=== PATIENT | male | born 1995 | race Caucasian/White ===

== ENCOUNTER 2023-05-24 20:10 | Inpatient (IN) | payer BC, SELFPAY ==
--- NOTE | ~2023-05-24 | US_ITS ---
EXAMINATION: US venous doppler UE DATE: 05/25/2023 10:42 INDICATION: Left arm swelling TECHNIQUE: Grayscale ultrasound images without and with compression and Doppler ultrasound images of the left upper extremity veins were obtained. COMPARISON: None. FINDINGS: The left internal jugular vein, subclavian vein, axillary vein, brachial veins, basilic vein, cephali c vein, radial vein, and ulnar vein are patent. IMPRESSION: 1. No evidence of deep venous thrombosis. Reviewed, dictated and finalized at location L.
--- NOTE | ~2023-05-24 | US_ITS ---
EXAMINATION: US abdomen limited DATE: 05/25/2023 10:41 INDICATION: Elevated CPK TECHNIQUE: Multiple grayscale and Doppler ultrasound images of the abdomen were obtained. COMPARISON: None available FINDINGS: The head and body of the pancreas are normal. The pancreatic tail is obscured by bowel gas. The liver is normal with normal echogenicity and echotexture. No surface nodularity. Normal hepatope jose de jesus flow in the main portal vein. The gallbladder is normal with no abnormal wall thickening, pericho lecystic fluid or stones. The normal common bile duct measures 2 mm. There was no sonographic Cruz sign. IMPRESSION: 1. No sonographic correlate for the patient's symptoms. Reviewed, dictated and finalized at location L.
[2023-05-24 20:26] VITALS: BP 137/85; PULSE 91; RESP 14; TEMP 36.8; O2SAT 99
[2023-05-24 21:46] LABS: Appearance Urine Clear (Clear); Bilirubin Urine Negative (Negative); Blood Urine Negative (Negative); Color Urine Yellow (Yellow); Glucose Urine UA Negative (Negative); Ketones Urine Negative (Negative); Leukocyte Esterase Ur Negative LEU/UL (Negative); Nitrate Urine Negative (Negative); Protein Urine Negative (Negative); Specific Grav Ur 1.006 (1.001-1.035); Urobilinogen Urine 0.2 mg/dL (<2.0)
[2023-05-24 21:47] LABS: Add Urine Microscopic? NO
[2023-05-24 22:20] LABS: Basophils Percent Auto 0.4 % (0.2-1.2); Eosinophils Absolute Auto 0.4 K/mm3 (0-0.3); Eosinophils Percent Auto 5.6 % (0-4.4); Hematocrit 46.2 % (42.0-52.0); Hemoglobin 15.9 g/dL (14.0-18.0); Immature Granulocyte Absolute 0.02 K/mm3 (0.00-0.031); Immature Granulocyte Percent A 0.3 % (0-0.5); Lymphocytes Absolute Auto 1.82 K/mm3 (0.9-3.2); Lymphocytes Percent Auto 23.8 % (18.3-44.2); Mean Corpuscular HGB Conc 34.4 g/dl (32-36); Mean Corpuscular Hemoglobin 30.2 pg (26-34); Mean Corpuscular Volume 87.7 fl (80-100); Mean Platelet Volume 9.5 fl (7.4-10.4); Monocytes Absolute Auto 0.6 K/mm3 (0.1-0.6); Monocytes Percent Auto 7.4 % (2.6-8.5); Neutrophils Absolute Auto 4.8 K/mm3 (1.3-6.7); Neutrophils Percent Auto 62.5 % (45.5-73.1); Platelet Count Result 228 k/mm3 (150-375); Red Blood Count 5.27 M/mm3 (4.6-6.20); Red Cell Distribution Width 13.3 % (11.5-14.5); White Blood Count 7.7 K/mm3 (4.5-10.0)
[2023-05-24 22:30] LABS: Prothrombin Time 13.9 Seconds (11.1-14.7)
[2023-05-24 22:32] VITALS: BP 128/72; PULSE 85; RESP 12; TEMP 37.2; O2SAT 100
[2023-05-24 22:37] LABS: Alanine Aminotransferase 195 U/L (6-50); Albumin Level 4.4 g/dL (3.5-5.1); Alkaline Phosphatase 47 U/L (38-126); Anion Gap 5 mmol/L (8-16); Aspartate Amino Transferase 497 U/L (17-59); Bilirubin,Total 1.3 mg/dL (0.2-1.3); Blood Urea Nitrogen 9 mg/dL (9-20); Carbon Dioxide 30 mmol/L (22-30); Chloride 103 mmol/L (98-107); Estimated CRCL calculation 140 ml/min; Estimated Glomerular Filt Rate > 60; Glucose 81 mg/dL (65-110); Potassium 3.9 mmol/L (3.4-5.0); Sodium 138 mmol/L (137-145)
[2023-05-24 23:04] LABS: Creatine Kinase 12922 U/L (55-170)
--- NOTE | 2023-05-24 23:22 | ED.GENADULT ---
HPI - General Adult General Chief complaint: Extremity Problem,Nontraumatic Stated complaint: left arm swelling Time Seen by Provider: 05/24/23 22:34 History of Present Illness HPI narrative: 28-year-old male presented emerged department for evaluation of left arm swelling. Patient states that he does workout regularly but did recently do a very intense arm work-up. Patient states he had some bilateral arm soreness but no focal left arm pain. Patient noticed he had increased swelling of the left arm. Patient states he still has intact sensation and denies any pain. Patient has no swelling of the hand. Patient has no prior history of PE or DVT. Related Data Home Medications Medication Instructions Recorded Confirmed multivitamin 1 tablet PO DAILY 05/01/23 Allergies Allergy/AdvReac Type Severity Reaction Status Date / Time pollen extracts Allergy Unknown Rash Verified 05/01/23 08:11 No Known Allergies Allergy Verified 05/01/23 08:11 Review of Systems Review of Systems: All systems reviewed & are unremarkable except as noted in HPI and below PMFSH Past Medical History Medical History ADHD Allergies External hemorrhoid Hemorrhoids Family History Family History Father Asthma Depression ADHD Mother Depression Hypertension Grandparent Malignant neoplasm of prostate Other Family history of malignant neoplasm Social History Social History Smoking status: Never smoker Alcohol intake: current Drinks per week: 1 Alcohol use details: rarely Substance use: current Substance use type: marijuana Lack of Transportation: No Lack of Food: Never True Current Housing: I Have Housing Concerned About Future Housing: No Difficulty Paying Gas/Electric Bills: No Difficulty Paying for Meds: No Currently Unemployed: No Education: Associate Degree Difficulty w/ Childcare or Family Care: No Living arrangements: alone Occupation/Education: occupation 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 HEAD: normocephalic, atraumatic. EYES: PERRLA/EOMI, conjunctivae clear. NOSE: Normal no drainage NECK: Supple. No adenopathy, no masses. RESPIRATORY: Airway patent, respirations nonlabored. Clear to auscultation bilaterally, no rales, rhonchi, wheezing. CARDIOVASCULAR: Regular rate and rhythm without murmurs rubs or gallops. ABDOMINAL: Soft, nontender, nondistended, normal bowel sounds MUSCULOSKELETAL: Moves all extremities. Left upper arm and left forearm fullness, no firmness of the compartments, no tenderness to palpation, no erythema, intact pulses. NEURO: Alert. Cranial nerves II through XII intact. Grossly intact SKIN: Warm, dry. Normal Color. No evidence of cellulitis Course Course Emergency Course: 28-year-old male presented ED for evaluation of left arm fullness. Patient is afebrile with no leukocytosis. Patient has a stable hemoglobin at 15.9. Patient has normal kidney function and creatinine clearance. Patient does have mildly elevated liver enzymes. Patient does have a significantly elevated CPK. Story and labs are concerning for rhabdomyolysis. 2 L of labs were ordered. Case was discussed with the hospitalist but he was accepted for admission. Patient was up and the results of his labs and on the plan for admission. All questions concerns were addressed. Vital Signs Vital signs: Vital Signs Temperature 98.3 F 05/24/23 20:26 Pulse Rate 91 05/24/23 20:26 Respiratory Rate 14 05/24/23 20:26 Blood Pressure 137/85 05/24/23 20:26 Pulse Oximetry 99 05/24
--- NOTE | 2023-05-24 23:31 | PM.IMHP ---
H&P: HPI History of Present Illness Date/Time: 05/24/23 23:31 Chief Complaint: Left upper extremity swelling Narrative: This is a 28 male with past medical history significant for ADHD, allergies patient presents to the emergency room after he noted left upper extremity increases arm circumference, no pain, no tenderness, no warmth, no decreased range of motion, no pain with movement, no numbness, no tingling, patient has been working out at the gym. Preliminary workup was significant for elevated CPK. Patient is been admitted for further evaluation management and treatment. EXAMINATION: US venous doppler UE DATE: 05/25/2023 10:42 INDICATION: Left arm swelling TECHNIQUE: Grayscale ultrasound images without and with compression and Doppler ultrasound images of the left upper extremity veins were obtained. COMPARISON: None. FINDINGS: The left internal jugular vein, subclavian vein, axillary vein, brachial veins, basilic vein, cephalic vein, radial vein, and ulnar vein are patent. IMPRESSION: 1. No evidence of deep venous thrombosis. Review of Systems Review of Systems: Left upper extremity swelling Constitutional: Constitutional: Denies chills, Denies fatigue, Denies fever(s), Denies malaise, Denies night sweats and Denies weakness Eyes: Eyes: Denies change in vision ENT: Denies dysphagia and Denies odynophagia Cardiovascular: Cardiovascular: Denies chest pain, Denies radiating jaw, neck or arm pain and Denies palpitations Respiratory: Respiratory: Denies chest congestion, Denies cough and Denies excessive phlegm production Gastrointestinal: Gastrointestinal: Denies abdominal pain, Denies dyspepsia, Denies heartburn, Denies diarrhea, Denies nausea and Denies vomiting Genitourinary: Genitourinary: Denies dysuria Musculoskeletal: Musculoskeletal: Denies myalgias, Denies arthralgias, Denies joint swelling, Denies limited range of motion and Denies muscle weakness Comments: LUE swelling Integumentary/Breasts: Skin/Breast: Denies rash Neurologic: Denies vertigo, Denies dizziness, Denies focal weakness and Denies Sensory deficit (Neuro) Psychiatric: Psychiatric: Reports no additional psychiatric complaints and Reports as per HPI Endocrine: Endocrine: Denies cold intolerance, Denies flushing, Denies heat intolerance, Denies polyphagia, Denies polydipsia and Denies palpitations Hematologic/Lymphatic: Hematologic/Lymphatic: Reports no additional hematologic/lymphatic complaints and Reports as per HPI Allergic/Immunologic: Allergic/Immunologic: Reports no additional allergic/immunologic complaints, Reports as per HPI, Denies urticaria, Denies itchy eyes, Denies lip swelling and Denies wheezing PMFSH Past Medical History Medical History ADHD Allergies External hemorrhoid Hemorrhoids Family History Family History Father Asthma Depression ADHD Mother Depression Hypertension Grandparent Malignant neoplasm of prostate Other Family history of malignant neoplasm Social History Social History Smoking status: Never smoker Alcohol intake: current Drinks per week: 1 Alcohol use details: rarely Substance use: current Substance use type: marijuana Lack of Transportation: No Lack of Food: Never True Current Housing: I Have Housing Concerned About Future Housing: No Difficulty Paying Gas/Electric Bills: No Difficulty Paying for Meds: No Currently Unemployed: No Education: Associate Degree Difficulty w/ Childcare or Family Care: No Living arrangements: alone Occupation/Education: occupation 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
[2023-05-24] MEDS: SODIUM CHLORIDE 0.9% IV 1,000 ML 999 ML IV CONT ×2 (23:32→23:33)
[2023-05-25] VITALS (7 sets, daily range): BP systolic 109–161; BP diastolic 46–94; PULSE 55–92; RESP 14–20; TEMP 36.5–36.8; O2SAT 98–100
--- NOTE | 2023-05-25 00:56 | PC.NURSE ---
pt arrived on floor to room 328 at 00:50. oriented to room and call light use.
[2023-05-25] MEDS: SODIUM CHLORIDE 0.9% IV 1,000 ML 200 ML IV CONT ×3 (00:58→18:30)
[2023-05-25 03:35] LABS: Creatine Kinase 9218 U/L (55-170)
[2023-05-25 07:00] LABS: Hematocrit 46.2 % (42.0-52.0); Hemoglobin 15.5 g/dL (14.0-18.0); Mean Corpuscular HGB Conc 33.5 g/dl (32-36); Mean Corpuscular Volume 89.4 fl (80-100); Mean Platelet Volume 10.1 fl (7.4-10.4); Platelet Count Result 230 k/mm3 (150-375); Red Blood Count 5.17 M/mm3 (4.6-6.20); Red Cell Distribution Width 13.2 % (11.5-14.5); White Blood Count 7.2 K/mm3 (4.5-10.0)
[2023-05-25 07:09] LABS: Anion Gap 5 mmol/L (8-16); Blood Urea Nitrogen 7 mg/dL (9-20); Calcium 8.6 mg/dL (8.4-10.2); Carbon Dioxide 28 mmol/L (22-30); Chloride 107 mmol/L (98-107); Estimated CRCL calculation 140 ml/min; Estimated Glomerular Filt Rate > 60; Glucose 90 mg/dL (65-110); Magnesium 2.1 mg/dL (1.6-2.3); Phosphorus 3.3 mg/dL (2.5-4.5); Potassium 3.9 mmol/L (3.4-5.0); Sodium 140 mmol/L (137-145)
[2023-05-25 07:13] LABS: Creatine Kinase 7372 U/L (55-170)
[2023-05-25] MEDS: ENOXAPARIN 40 MG/0.4 ML SYRINGE SUB-Q (09:31)
--- NOTE | 2023-05-25 15:13 | PM.IMPN ---
Progress Note: A&P Assessment and Plan (1) Rhabdomyolysis: Qualifiers: Rhabdomyolysis type: non-traumatic Qualified Code(s): M62.82 - Rhabdomyolysis Code(s): M62.82 - Rhabdomyolysis Status: Acute Assessment and Plan: Patient works out frequently and lifts weights. He developed LUE swelling and came to the ED. -CK down trending 12,922-->9218-->7372 -Continue IV fluids at 200 ml per hour (2) Elevated liver enzymes: Code(s): R74.8 - Abnormal levels of other serum enzymes Status: Acute Assessment and Plan: Transaminitis related to rhabdomyolysis -AST 497, ALT 195 Subjective Date/time seen: 05/25/23 15:13 Interval history: This is a 28 male with past medical history significant for ADHD, allergies patient presents to the emergency room after he noted left upper extremity increases arm circumference, no pain, no tenderness, no warmth, no decreased range of motion, no pain with movement, no numbness, no tingling, patient has been working out at the gym.? Preliminary workup was significant for elevated CPK.? Patient is been admitted for further evaluation management and treatment. Interval history: 05/25: Say was seen this afternoon and appears well. He says he has no complaints other than some swelling to his left arm. He feels like the swelling has moved up to his mid-bicep but he was also asleep laying on it. Otherwise he feels completely fine. ROS in negative. No abdominal pain, N/V. He is urinating without difficulty and tolerating a regular diet. I reviewed his ultrasound results from this morning. RUQ US negative for liver pathology and the LUE US negative for DVT. Will continue aggressive hydration and will repeat labs in the morning. Hopefully if his CK is nearly recovered and his liver enzymes are improved then he can d/c home with instructions to drink lots of fluids and follow up with PCP. Review of Systems Review of Systems: All systems reviewed & are unremarkable except as noted in HPI and below Exam Narrative: General: well appearing, well developed, appears stated age. Neuro: Alert and orientated x 4. PERRLA. Cranial nerves 2-12 intact without focal deficit. HEENT: normocephalic, atraumatic. Mucous membranes moist. Neck supple without JVD or lymphadenopathy. Respiratory: clear to auscultation bilaterally. No rales/rhonic/wheezes. Cardiovascular: Regular rate and rhythm, normal S1-S2 upon auscultation. No murmurs, rubs, or clicks. PMI is nondisplaced. Abdomen: Soft, flat, non-distended and non-tender. Bowel sounds present to all four quadrants. Extremities: No cyanosis, clubbing. LUE non-pitting edema to mid-bicep and mid-forearm. Pulses are palpable 2/2. Active ROM to all four extremities. Skin: Warm, dry, and intact, without rash, erythema, or lesion. Psych: pleasant, cooperative, normal speech, normal affect. Objective Data Vital Signs Vital Signs: Vital Signs - 24 hr 05/24/23 20:26 05/24/23 22:32 05/25/23 00:09 Temperature 98.3 F 98.9 F Pulse Rate 91 85 84 Respiratory Rate 14 12 20 Blood Pressure 137/85 128/72 128/74 Pulse Oximetry 99 100 100 Oxygen Delivery Room Air 05/25/23 01:53 05/25/23 06:00 05/25/23 08:32 Temperature 97.7 F Pulse Rate 55 L Respiratory Rate 14 Blood Pressure 109/46 L Pulse Oximetry 98 98 Oxygen Delivery Room Air Room Air 05/25/23 13:41 Temperature 98.2 F Pulse Rate 92 Respiratory Rate 17 Blood Pressure 133/83 Pulse Oximetry 100 Oxygen Delivery Intake/Output Intake/Output: Intake & Output 05/22/23 05/23/23 05/24/23 05/25/23 23:59 23:59 23:59 23:59 Intake Total 3360 Balance 3360 Meds/Results Medications: Active Medications Generic Name Dose Route Start Last Admin Trade Name Freq PRN Reason Stop Dose Admin Al Hydrox/Mg Hydrox/Simethicone 30 ml 05/25/23 03:19 Mag Hydrox/Al Hydrox/Simeth 30 Ml Udc PO Q6H PRN Indigestion Enoxaparin Sodium 40 mg
[2023-05-26] MEDS: SODIUM CHLORIDE 0.9% IV 1,000 ML 200 ML IV CONT ×4 (03:45→19:03)
[2023-05-26 06:00] VITALS: BP 142/83; PULSE 65; RESP 16; TEMP 35.8; O2SAT 99
[2023-05-26 06:06] LABS: Basophils Percent Auto 0.7 % (0.2-1.2); Eosinophils Absolute Auto 0.7 K/mm3 (0-0.3); Eosinophils Percent Auto 12.5 % (0-4.4); Hematocrit 42.7 % (42.0-52.0); Hemoglobin 14.3 g/dL (14.0-18.0); Immature Granulocyte Absolute 0.02 K/mm3 (0.00-0.031); Immature Granulocyte Percent A 0.4 % (0-0.5); Lymphocytes Absolute Auto 1.52 K/mm3 (0.9-3.2); Lymphocytes Percent Auto 27.2 % (18.3-44.2); Mean Corpuscular HGB Conc 33.5 g/dl (32-36); Mean Corpuscular Hemoglobin 29.9 pg (26-34); Mean Corpuscular Volume 89.3 fl (80-100); Mean Platelet Volume 9.7 fl (7.4-10.4); Monocytes Absolute Auto 0.4 K/mm3 (0.1-0.6); Monocytes Percent Auto 6.6 % (2.6-8.5); Neutrophils Absolute Auto 2.9 K/mm3 (1.3-6.7); Neutrophils Percent Auto 52.6 % (45.5-73.1); Platelet Count Result 199 k/mm3 (150-375); Red Blood Count 4.78 M/mm3 (4.6-6.20); Red Cell Distribution Width 13.2 % (11.5-14.5); White Blood Count 5.6 K/mm3 (4.5-10.0)
[2023-05-26 06:29] LABS: Alanine Aminotransferase 126 U/L (6-50); Albumin Level 3.6 g/dL (3.5-5.1); Alkaline Phosphatase 40 U/L (38-126); Anion Gap 5 mmol/L (8-16); Aspartate Amino Transferase 222 U/L (17-59); Blood Urea Nitrogen 6 mg/dL (9-20); Calcium 8.3 mg/dL (8.4-10.2); Carbon Dioxide 26 mmol/L (22-30); Chloride 108 mmol/L (98-107); Estimated CRCL calculation 159 ml/min; Estimated Glomerular Filt Rate > 60; Glucose 99 mg/dL (65-110); Potassium 3.9 mmol/L (3.4-5.0); Sodium 139 mmol/L (137-145)
[2023-05-26 08:45] LABS: Creatine Kinase 4431 U/L (55-170)
[2023-05-26 13:59] VITALS: BP 142/91; PULSE 78; RESP 18; TEMP 36.7; O2SAT 98
--- NOTE | 2023-05-26 17:58 | PM.IMPN ---
Progress Note: A&P Assessment and Plan (1) Rhabdomyolysis: Qualifiers: Rhabdomyolysis type: non-traumatic Qualified Code(s): M62.82 - Rhabdomyolysis Code(s): M62.82 - Rhabdomyolysis Status: Acute Assessment and Plan: Patient works out frequently and lifts weights. He developed LUE swelling and came to the ED. -CK down trending 12,922-->9218-->7372-->4431 -Continue IV fluids at 200 ml per hour (2) Elevated liver enzymes: Code(s): R74.8 - Abnormal levels of other serum enzymes Status: Acute Assessment and Plan: Transaminitis related to rhabdomyolysis -AST 497, ALT 195 -Continue to downtrend. AST 222 and ALT 126 today Subjective Date/time seen: 05/26/23 17:58 Interval history: This is a 28 male with past medical history significant for ADHD, allergies patient presents to the emergency room after he noted left upper extremity increases arm circumference, no pain, no tenderness, no warmth, no decreased range of motion, no pain with movement, no numbness, no tingling, patient has been working out at the gym.? Preliminary workup was significant for elevated CPK.? Patient is been admitted for further evaluation management and treatment. Interval history: 05/25: Say was seen this afternoon and appears well. He says he has no complaints other than some swelling to his left arm. He feels like the swelling has moved up to his mid-bicep but he was also asleep laying on it. Otherwise he feels completely fine. ROS in negative. No abdominal pain, N/V. He is urinating without difficulty and tolerating a regular diet. I reviewed his ultrasound results from this morning. RUQ US negative for liver pathology and the LUE US negative for DVT. Will continue aggressive hydration and will repeat labs in the morning. Hopefully if his CK is nearly recovered and his liver enzymes are improved then he can d/c home with instructions to drink lots of fluids and follow up with PCP. 05/26: Say continues to do well. No complaints, no issues overnight. He is ready to go home anytime we are just waiting for his CK to decrease. Labs trending in the expected direction. He did note that his BP was a little high but I'm blaming it on IV fluids and he also mentions that he was just finishing walking when his vitals were taken. Swelling to his left arm is improved from yesterday. Review of Systems Review of Systems: All systems reviewed & are unremarkable except as noted in HPI and below Exam Narrative: General: well appearing, well developed, appears stated age. Neuro: Alert and orientated x 4. PERRLA. Cranial nerves 2-12 intact without focal deficit. HEENT: normocephalic, atraumatic. Mucous membranes moist. Neck supple without JVD or lymphadenopathy. Respiratory: clear to auscultation bilaterally. No rales/rhonic/wheezes. Cardiovascular: Regular rate and rhythm, normal S1-S2 upon auscultation. No murmurs, rubs, or clicks. PMI is nondisplaced. Abdomen: Soft, flat, non-distended and non-tender. Bowel sounds present to all four quadrants. Extremities: No cyanosis, clubbing. LUE non-pitting edema to mid-bicep and mid-forearm. Pulses are palpable 2/2. Active ROM to all four extremities. Skin: Warm, dry, and intact, without rash, erythema, or lesion. Psych: pleasant, cooperative, normal speech, normal affect. Objective Data Vital Signs Vital Signs: Vital Signs - 24 hr 05/25/23 20:55 05/25/23 20:00 05/25/23 21:26 Temperature 97.7 F Pulse Rate 84 92 Respiratory Rate 16 17 Blood Pressure 161/94 H 154/84 H Pulse Oximetry 99 100 Oxygen Delivery Room Air 05/26/23 06:00 05/26/23 13:59 Temperature 96.4 F L 98.1 F Pulse Rate 65 78 Respiratory Rate 16 18 Blood Pressure 142/83 H 142/91 H Pulse Oximetry 99 98 Oxygen Delivery Intake/Output Intake/Output: Intake & Output 05/23/23 05/24/23 05/25/23 05/26/23 23:59 23:59 23:59 23:59 Intake Total 6150 2990 Balance 6150 2990 Meds/R
[2023-05-26 19:58] VITALS: PULSE 78; RESP 18; O2SAT 98
[2023-05-26 22:00] VITALS: BP 153/86; PULSE 73; RESP 16; TEMP 37.1; O2SAT 99
[2023-05-27] MEDS: SODIUM CHLORIDE 0.9% IV 1,000 ML 200 ML IV CONT (02:47)
[2023-05-27 05:57] LABS: Basophils Absolute Auto 0.1 K/mm3 (0.0-0.1); Basophils Percent Auto 0.7 % (0.2-1.2); Eosinophils Absolute Auto 0.8 K/mm3 (0-0.3); Hematocrit 41.2 % (42.0-52.0); Hemoglobin 13.8 g/dL (14.0-18.0); Immature Granulocyte Absolute 0.02 K/mm3 (0.00-0.031); Immature Granulocyte Percent A 0.3 % (0-0.5); Lymphocytes Absolute Auto 2.12 K/mm3 (0.9-3.2); Lymphocytes Percent Auto 30.6 % (18.3-44.2); Mean Corpuscular HGB Conc 33.5 g/dl (32-36); Mean Corpuscular Hemoglobin 29.9 pg (26-34); Mean Corpuscular Volume 89.4 fl (80-100); Mean Platelet Volume 9.9 fl (7.4-10.4); Monocytes Absolute Auto 0.6 K/mm3 (0.1-0.6); Monocytes Percent Auto 8.2 % (2.6-8.5); Neutrophils Absolute Auto 3.4 K/mm3 (1.3-6.7); Neutrophils Percent Auto 49.2 % (45.5-73.1); Platelet Count Result 177 k/mm3 (150-375); Red Blood Count 4.61 M/mm3 (4.6-6.20); Red Cell Distribution Width 13.3 % (11.5-14.5); White Blood Count 6.9 K/mm3 (4.5-10.0)
[2023-05-27 06:00] VITALS: BP 140/82; PULSE 68; RESP 16; TEMP 37; O2SAT 100
[2023-05-27 06:13] LABS: Alanine Aminotransferase 108 U/L (6-50); Albumin Level 3.5 g/dL (3.5-5.1); Alkaline Phosphatase 39 U/L (38-126); Anion Gap 5 mmol/L (8-16); Aspartate Amino Transferase 150 U/L (17-59); Bilirubin,Total 0.8 mg/dL (0.2-1.3); Blood Urea Nitrogen 7 mg/dL (9-20); Calcium 8.4 mg/dL (8.4-10.2); Carbon Dioxide 26 mmol/L (22-30); Chloride 108 mmol/L (98-107); Estimated CRCL calculation 159 ml/min; Estimated Glomerular Filt Rate > 60; Glucose 110 mg/dL (65-110); Potassium 3.5 mmol/L (3.4-5.0); Sodium 139 mmol/L (137-145)
[2023-05-27 06:19] LABS: Creatine Kinase 2013 U/L (55-170)
--- NOTE | 2023-05-27 07:29 | PM.DS ---
DS: Admitting Diagnosis Discharge Date May 27 Admitting Diagnosis Rhabdomyolysis DS: Discharge Diagnosis Discharge Diagnosis (1) Rhabdomyolysis: Qualifiers: Rhabdomyolysis type: non-traumatic Qualified Code(s): M62.82 - Rhabdomyolysis Code(s): M62.82 - Rhabdomyolysis Status: Acute Assessment and Plan: Patient works out frequently and lifts weights. He developed LUE swelling and came to the ED. -CK down trending 12,922-->9218-->7372-->4431 -Continue IV fluids at 200 ml per hour (2) Elevated liver enzymes: Code(s): R74.8 - Abnormal levels of other serum enzymes Status: Acute Assessment and Plan: Transaminitis related to rhabdomyolysis -AST 497, ALT 195 -Continue to downtrend. AST 222 and ALT 126 today Plan Patient can discharge today as his CK and hepatic enzymes continue to trend down quickly. I trust that this patient will follow his discharge plan appropriately. DS: Summary Hospital Course Reason for hospitalization: rhabdomyolysis Hospital Course: Interval history: This is a 28 male with past medical history significant for ADHD, allergies patient presents to the emergency room after he noted left upper extremity increases arm circumference, no pain, no tenderness, no warmth, no decreased range of motion, no pain with movement, no numbness, no tingling, patient has been working out at the gym.? Preliminary workup was significant for elevated CPK.? Patient is been admitted for further evaluation management and treatment. Interval history: 05/25: Say was seen this afternoon and appears well. He says he has no complaints other than some swelling to his left arm. He feels like the swelling has moved up to his mid-bicep but he was also asleep laying on it. Otherwise he feels completely fine. ROS in negative. No abdominal pain, N/V. He is urinating without difficulty and tolerating a regular diet. I reviewed his ultrasound results from this morning. RUQ US negative for liver pathology and the LUE US negative for DVT. Will continue aggressive hydration and will repeat labs in the morning. Hopefully if his CK is nearly recovered and his liver enzymes are improved then he can d/c home with instructions to drink lots of fluids and follow up with PCP. 05/26: Say continues to do well. No complaints, no issues overnight. He is ready to go home anytime we are just waiting for his CK to decrease. Labs trending in the expected direction. He did note that his BP was a little high but I'm blaming it on IV fluids and he also mentions that he was just finishing walking when his vitals were taken. Swelling to his left arm is improved from yesterday. Status at Discharge Cognitive/behavioral status at discharge: independent Time Spent with Patient Time attestation: Total time spent providing and/or coordinating discharge services:41 Exam Narrative: General: well appearing, well developed, appears stated age. Neuro: Alert and orientated x 4. PERRLA. Cranial nerves 2-12 intact without focal deficit. HEENT: normocephalic, atraumatic. Mucous membranes moist. Neck supple without JVD or lymphadenopathy. Respiratory: clear to auscultation bilaterally. No rales/rhonic/wheezes. Cardiovascular: Regular rate and rhythm, normal S1-S2 upon auscultation. No murmurs, rubs, or clicks. PMI is nondisplaced. Abdomen: Soft, flat, non-distended and non-tender. Bowel sounds present to all four quadrants. Extremities: No cyanosis, clubbing. LUE non-pitting edema to mid-bicep and mid-forearm. Pulses are palpable 2/2. Active ROM to all four extremities. Skin: Warm, dry, and intact, without rash, erythema, or lesion. Psych: pleasant, cooperative, normal speech, normal affect. DS: Data Data Completed and Pending Labs on day of discharge: Labs from last 24 hours 05/27/23 05/27/23 05/26/23 05:28 05:27 05:45 WBC 6.9 RBC 4.61 Hgb 13.8 L Hct 41.2 L MCV 89.4 MCH 29.9
== END 2023-05-27 10:40 | disposition home or self-care (01) | DRG 558 ==
LOC: ANHED 22:46 → ANH3MEDSUR 05-25 00:07
PROVIDERS: General Practice; Nurse Practitioner Acute Care; Admitting Provider Internal Medicine; Emergency Provider Emergency Medicine; PCP Physician Assistant Medical; Visit Provider Student in an Organized Health Care Education/Training Program
DX: M62.82 Rhabdomyolysis (principal); R74.8 Abnormal levels of other serum enzymes; F90.9 Attention-deficit hyperactivity disorder, unspecified type
CPT/HCPCS: 36415; 76705; 80048; 80053; 80076; 81003; 82550; 83735; 84100; 85025; 85027; 85610; 85730; 93971; 96360; 96361; 99285; G0378; J1650; J7030